=== PATIENT | female | born 2005 | race Hispanic/Latino ===

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

== ENCOUNTER 2024-10-22 05:30 | Inpatient (IN) | payer OTHER ==
[2024-10-22 06:36] LABS: ALT (SGPT) 60 U/L (Less than 34); AST (SGOT) 84 U/L (11-34); Albumin 3.9 g/dL (3.1-4.5); Alkaline Phosphatase 98 U/L (40-100); Anion Gap 17 mmol/L (10-20); BUN (Urea Nitrogen) 11 mg/dL (7.0-18.7); Bilirubin, Total 0.6 mg/dL (0.3-1.2); Calc. Creatinine Clearance 0 mL/min (70-130); Calcium 8.7 mg/dL (7.8-10.44); Carbon Dioxide 21 mmol/L (22-29); Chloride 109 mmol/L (98-107); Globulin 4.7 g/dL (2.4-3.5); Glucose 104 mg/dL (70-105); Potassium 3.7 mmol/L (3.5-5.1); Sodium 143 mmol/L (136-145)
[2024-10-22 07:33] LABS: Hematocrit 28.8 % (36.0-47.0); Hemoglobin 9.5 g/dL (12.0-16.0); Mean Corpuscular Hemoglobin 29.3 pg (25.0-35.0); Mean Corpuscular Volume 88.9 fL (78.0-98.0); Platelet Count Less than 2 10x3/uL (130-400); Red Blood Cell (RBC) Count 3.24 mill/uL (4.00-5.20); White Blood Cell (WBC) Count 4.07 10x3/uL (4.8-10.8)
[2024-10-22 07:34] LABS: #Basophils 0.04 10x3/uL (0.0-0.2); #Eosinophils 0.07 10x3/uL (0.0-0.7); #Monocytes 0.36 10x3/uL (0.11-0.59); #Neutrophils 3.06 10x3/uL (1.40-6.50); %Basophils 1.0 % (0.0-1.0); %Eosinophils 1.7 % (0.0-10.0); %Lymphocytes 12.3 % (28.0-48.0); %Monocytes 8.8 % (0.0-4.0); %Neutrophils 75.2 % (31.0-61.0)
[2024-10-22 07:37] LABS: Anisocytosis MODERATE=16-30 cells HPF (0-5); Macrocytosis SLIGHT = 6-15 cells HPF (0-5); Platelet Adequacy Comment Significant Decrease; Polychromasia SLIGHT = 2-3 cells HPF (0-2)
[2024-10-22 08:07] LABS: INR-International Normal Ratio 1.0; Prothrombin Time 13.6 sec (12.0-14.7)
[2024-10-22 08:08] LABS: PTT 29.6 sec (22.9-36.1)
[2024-10-22] MEDS ORDERED: Dexamethasone 10 MG/ML VIAL ONE (09:33)
[2024-10-22] MEDS ORDERED: Acetaminophen 325 MG TAB PO PRN (10:46)
[2024-10-22 12:17] LABS: HIV (1/2) Antibody/Antigen NONREACTIVE (NonReactive); HIV 1/2 INDEX 0.14 S/CO (<1.00); Hep B Surf Ag NONREACTIVE S/CO (NonReactive); Hep C IgG Ab NONREACTIVE S/CO (NonReactive); Hep C Index 0.15 S/CO (0-0.79)
[2024-10-22] MEDS: Dexamethasone Sod Phosphate 40 MG in Sodium Chloride 0.9% 50 ML IVPB SCH (12:32)
[2024-10-22 19:22] VITALS: BMI 41.2
[2024-10-22 20:14] VITALS: BP 110/75; TEMP 98
== END 2024-10-22 20:10 | disposition short-term general hospital (02) | DRG 546 ==
LOC: ERS 05:30 → ERHOLD 09:29 → MSONC 11:07
PROVIDERS: ADMIT Internal Medicine; ATTEND Internal Medicine
DX: M32.9 Systemic lupus erythematosus, unspecified (principal); D69.3 Immune thrombocytopenic purpura; D69.59 Other secondary thrombocytopenia; D64.9 Anemia, unspecified; R74.01 Elevation of levels of liver transaminase levels; B35.1 Tinea unguium; Z88.1 Allergy status to other antibiotic agents; Z79.899 Other long term (current) drug therapy
CPT/HCPCS: 36415; 36430; 80053; 85025; 85384; 85610; 85730; 86803; 86850; 86900; 86901; 87340; 87389; 99284; J1100; P9035